=== PATIENT | male | born 1975 | race Caucasian/White ===

== ENCOUNTER 2018-06-01 15:01 | Emergency (ER) | payer OTHER ==
[~2018-06-01] VITALS: Ht 188 cm; Wt 117.9 kg
[~2018-06-01 15:01] MED LIST: CETI10; FLUT.05NI; HYDACE5 PO; IBUP600; LEVA.63IS; LORA1 PO; LORA10ER; MONT10T PO; NAPR550 PO; PRED20 PO
[2018-06-01] MEDS ORDERED: LANS15EC PO (15:08)
== END 2018-06-01 15:49 | disposition home or self-care (01) ==
LOC: ER 15:01
DX: S61.213A Laceration without foreign body of left middle finger without damage to nail, initial encounter (principal); W26.0XXA Contact with knife, initial encounter; Z79.899 Other long term (current) drug therapy; J45.909 Unspecified asthma, uncomplicated; F41.9 Anxiety disorder, unspecified
CPT/HCPCS: 12001; 99282-25

== ENCOUNTER 2024-12-28 06:33 | Emergency (ER) | payer OTHER, BC ==
[~2024-12-28] VITALS: Ht 188 cm; Wt 122.5 kg
[~2024-12-28 06:33] MED LIST changes: +LANS15EC PO
[2024-12-28 06:43] VITALS: BP 144/104
[2024-12-28] MEDS ORDERED: HYDROcodone 5-APAP 325 TAB PO ONE (06:50)
[2024-12-28] MEDS ORDERED: Percocet 5-3251 EACH PO (07:30)
[2024-12-28] MEDS ORDERED: Bacitracin Zinc Oint 1GRAM UD Packet TOP ONE (07:40)
== END 2024-12-28 07:48 | disposition home or self-care (01) ==
LOC: ER 06:33
DX: S01.01XA Laceration without foreign body of scalp, initial encounter (principal); K21.9 Gastro-esophageal reflux disease without esophagitis; Z79.899 Other long term (current) drug therapy; W22.8XXA Striking against or struck by other objects, initial encounter
CPT/HCPCS: 90715; A9270

== ENCOUNTER 2025-01-07 14:07 | Emergency (ER) | payer OTHER, BC ==
[~2025-01-07] VITALS: Ht 188 cm; Wt 122.5 kg
[~2025-01-07 14:07] MED LIST changes: +Percocet 5-3251 EACH PO
[2025-01-07 14:11] VITALS: BP 168/120
== END 2025-01-07 14:19 | disposition home or self-care (01) ==
LOC: ER 14:07
DX: Z48.02 Encounter for removal of sutures (principal); K21.9 Gastro-esophageal reflux disease without esophagitis; Z79.899 Other long term (current) drug therapy
CPT/HCPCS: 99281